=== PATIENT | male | born 1985 | race Caucasian/White ===

== ENCOUNTER 2021-08-14 09:54 | Day surgery (SDC) | payer OTHER ==
[2021-07-30 10:40] LABS: BASOPHILS % (AUTO) 1.1 % (0-1); EOSINOPHILS # (AUTO) 0.1 X10'3 (0-0.9); EOSINOPHILS % (AUTO) 2.8 % (0-6); LYMPHOCYTES # (AUTO) 0.3 X10'3 (1.1-4.8); LYMPHOCYTES % (AUTO) 7.7 % (21-51); MEAN CORPUSCULAR HEMOGLOBIN 32.1 PG (27.0-31.0); MEAN CORPUSCULAR HGB CONC 33.4 g/dL (33.0-36.5); MEAN CORPUSCULAR VOLUME 96.2 FL (78-98); MEAN PLATELET VOLUME 8.1 FL (7.4-10.4); MONOCYTES # (AUTO) 0.4 X10'3 (0-0.9); MONOCYTES % (AUTO) 10.5 % (2-12); NEUTROPHILS # (AUTO) 3.1 X10'3 (1.8-7.7); NEUTROPHILS % (AUTO) 77.9 % (42-75); PRE OP HEMATOCRIT 44.2 % (42.0-52.0); PRE OP HEMOGLOBIN 14.8 g/dL (14.0-17.9); PRE OP PLATELET COUNT 138 X10'3 (140-440); RED BLOOD COUNT 4.59 X10'6 (4.70-6.10); RED CELL DISTRIBUTION WIDTH 13.2 % (11.5-14.5)
[2021-07-30 11:03] LABS: ALBUMIN 3.7 G/DL (3.4-5.0); ALBUMIN/GLOBULIN RATIO 0.8 (1.1-1.5); ALKALINE PHOSPHATASE 120 IU/L (46-116); BLOOD UREA NITROGEN 5 MG/DL (7-18); BUN/CREATININE RATIO 5.1 (5.4-32.0); CALCIUM 9.6 MG/DL (8.5-10.1); CHLORIDE 98 MMOL/L (99-107); CREATININE 0.99 MG/DL (0.60-1.10); PRE OP ANION GAP 9 (8-16); PRE OP BILIRUB, TOTAL 0.9 MG/DL (0.0-1.0); PRE OP GLUCOSE 113 MG/DL (70-104); PRE OP POTASSIUM 4.2 MMOL/L (3.4-5.1); PRE OP SODIUM 135 MMOL/L (135-145); TOTAL CARBON DIOXIDE 28.1 MMOL/L (24-32); TOTAL PROTEIN 8.2 G/DL (6.4-8.2); eGFR 87 ML/MIN
[2021-07-30 11:04] LABS: PRE OP AST 223 U/L (10-37)
[2021-07-30 11:05] LABS: PRE OP ALT 101 U/L (30-65)
[~2021-08-14] VITALS: Ht 182.9 cm; Wt 93.2 kg
[~2021-08-14 09:54] MED LIST: CBD PO; cefazolin/dext.iso 2gm/50ml IV ONE; famotidine 20mg tablet PO ONE; ringers solution, lacted 1,000 ML IV SCH
[2021-08-14 10:15] VITALS: BP 130/89
[2021-08-14] MEDS ORDERED: ringers solution, lacted 1,000 ML IV SCH (11:50)
[2021-08-14] MEDS ORDERED: ondansetron/PF 4mg/2ml inj IV PRN (11:50)
[2021-08-14] MEDS ORDERED: meperidine/PF 25mg/ml syringe IV PRN ×3 (11:50)
[2021-08-14] MEDS ORDERED: morphine 2 MG/ML inj. syringe IV PRN (11:50)
[2021-08-14] MEDS ORDERED: proCHLORperazine 10 MG/2 ml inj IV PRN (11:50)
[2021-08-14] MEDS ORDERED: morphine 4 MG/ML inj SYRINge IV PRN (11:50)
[2021-08-14] MEDS ORDERED: MIDAZolam 1 MG/ML 5ML VIAL ONE (13:13)
[2021-08-14] MEDS ORDERED: fentaNYL/PF 50MCG/1 ML 2ML syringe ONE (13:13)
[2021-08-14] MEDS ORDERED: ROPIVAcaine 0.5% (5mg/ml) 30ml vial ONE (13:17)
[2021-08-14] MEDS ORDERED: propofol inj 20 ML IV ONE (13:17)
[2021-08-14 14:48] VITALS: BP 149/110
--- NOTE | 2021-08-14 14:48 | NUR ---
Received from OR via [facility] IN STABLE CONDITION , accompanied by Anesthesiologist and COMMUNICATIONS ANALYST report given by COMMUNICATIONS ANALYST AND Anesthesiolgist. Addendum: 08/14/21 at 1510 by Heather Carr RN Amended: Links added.
[2021-08-14 15:00] VITALS: BP 126/92
[2021-08-14] MEDS ORDERED: HYDROcodone/acetaminophen 10/325mg tab PO PRN (15:05)
[2021-08-14 15:10] VITALS: BP 125/81
[2021-08-14 15:20] VITALS: BP 126/84
--- NOTE | 2021-08-14 15:38 | NUR ---
PATIENT DISCHARGED FROM PACU IN STABLE CONDITION AFTER WRITTEN AND VERBAL DISCHARGE INSTRUCTIONS GIVEN. PATIENT GAVE VERBAL UNDERSTANDING OF INSTRUCTIONS GIVEN. PATIENT LEFT FACILITY VIA WHEELCHAIR WITH RN. Addendum: 08/14/21 at 1641 by Heather Carr RN Amended: Links added.
== END 2021-08-14 15:38 | disposition home or self-care (01) ==
LOC: PAS 09:54
PROVIDERS: ATTEND Orthopaedic Surgery
DX: M75.41 Impingement syndrome of right shoulder (principal); M19.011 Primary osteoarthritis, right shoulder; M77.8 Other enthesopathies, not elsewhere classified; G89.18 Other acute postprocedural pain; Z87.891 Personal history of nicotine dependence; Z98.890 Other specified postprocedural states; Z72.89 Other problems related to lifestyle; Z20.822 Contact with and (suspected) exposure to COVID-19; Z79.899 Other long term (current) drug therapy
CPT/HCPCS: 29822; 36415; 64415; 76942; 80053; 82948; 85025; J0690; J2250; J2704; J2795; J3010; J7120; U0003; U0005; Z7506; Z7508; Z7512; A4565; A4618; A6449